=== PATIENT | male | born 2000 | race Caucasian/White ===

== ENCOUNTER 2021-06-19 00:25 | Emergency (ER) | payer OTHER ==
[~2021-06-19] VITALS: Ht 177.8 cm; Wt 63.6 kg
[2021-06-19 00:45] VITALS: BP 136/80
[2021-06-19] MEDS ORDERED: TETanus/Pertussis (Acell)/Diphther VAC/PF (Tdap-Adult) 0.5ml syringe IMVAC ONE (08:15)
[2021-06-19] MEDS ORDERED: LIDOcaine 1% W/epiNEPHrine 1:200,000 10ml vial ONE (09:00)
== END 2021-06-19 08:58 | disposition home or self-care (01) ==
LOC: ER 08:39
DX: S51.812A Laceration without foreign body of left forearm, initial encounter (principal); Z20.3 Contact with and (suspected) exposure to rabies; X78.9XXA Intentional self-harm by unspecified sharp object, initial encounter; Y93.89 Activity, other specified; Y92.89 Other specified places as the place of occurrence of the external cause; Y99.8 Other external cause status
CPT/HCPCS: 12001; 90471; 90715; 99283